=== PATIENT | male | born 2000 | race Caucasian/White ===

== ENCOUNTER 2024-09-16 18:09 | Inpatient (IN) | payer OTHER, SELFPAY ==
[2024-09-16 12:38] VITALS: BP 102/65
--- NOTE | 2024-09-16 13:39 | ED.GENMED ---
History of Present Illness
General
Chief Complaint: Abdominal Pain
Source: patient
Exam Limitations: none
Time Seen by Provider: 09/16/24 13:24
Nursing documentation reviewed up to this point in time: agreed with
History of Present Illness
History of Present Illness:
23 yo male, transitioning to female, taking HRT, presents with hx colitis and 2 days of n/v/dark liquid diarrheal stools. Last stool 1 hour ago, last emesis 3 hours ago. Pain across lower abdomen mainly but sometimes upper abdomen. Pain now 3/10 but
goes to 8/10 at times. Always there, waxes and wanes, dull with intermittent sharp pains.
Past History
Past History
ED Past Medical History: Other (colitis)
Social History
Tobacco: Other (occasional)
Alcohol: Occasional
Drug: None
Personal: Single
Living: alone
Employment: Not employed
Review of Systems
Review of Systems
Allergies reviewed?: Yes
All Other Systems: ROS reviewed and negative except as documented in HPI and ROS
Constitutional: Denies fever
Respiratory: Denies trouble breathing
Cardiac: Denies chest pain
ABD/GI: Reports abdominal pain, nausea, vomiting, diarrhea and black stools
: Denies dysuria, frequency or difficulty voiding
Musculoskeletal: Reports no symptoms
Skin: Reports no symptoms
Neurological: Reports no symptoms
Phy Exam
Physical Exam
Physical Exam:
GENERAL: No acute distress. A&Ox3.
CONSTITUTIONAL: Afebrile.
EYES: clear, conjunctivae normal
ENMT: moist mucus membranes, Pharynx nl
RESPIRATORY: Regular respirations, nonlabored, lungs clear.
CARDIOVASCULAR: Regular rate and rhythm, no murmurs, no rubs.
GI: Soft, abdomen generally tender, hypoactive BS.
MUSCULOSKELETAL: Moves with ease. Well perfused.
SKIN: Warm, dry, pink
PSYCH: Normal mood and affect. Well kept, interactive and appropriate
NEUROLOGIC: Awake, alert and oriented. No focal neurological deficits
Course
Orders/Labs/Results
Orders:
Orders
09/16/24 13:37
CT Abd/pel W Iv And Oral Contr Urgent
Comment:
Reason For Exam: n/v/ dark diarrheal stools, abd pain
0.9% Sodium Chloride 1000 ml [Nss] 1,000 ml IV BOLUS
Iohexol [Omnipaque] See Protocol PO NOW STA
Ondansetron Injectable [Zofran] 4 mg IV NOW STA
09/16/24 13:46
Ketorolac [Toradol] 15 mg IV NOW STA
09/16/24 13:55
Complete Blood Count/With Diff Urgent
Comprehensive Metabolic Panel Urgent
Urinalysis Reflex To Culture Urgent
Date Specimen was Collected: 09/16/24
Time Specimen was Collected: 12:43
Urine Microscopic Reflex Cult Urgent
09/16/24 Dinner
Clear Liquid
At Your Request: Full Participation
Does patient need a safe tray?: No
09/16/24 15:38
CDIFF [C difficile Antigen & Toxins] Urgent
ASHER Source: Feces/Stool
Specimen Description:
Date Specimen was Collected: 09/16/24
Time Specimen was Collected: 15:36
Stool Culture Urgent
ASHER Source: Feces/Stool
Specimen Description:
Date Specimen was Collected: 09/16/24
Time Specimen was Collected: 15:36
09/16/24 17:16
Consult Gastroenterology [GASTROINTESTINAL CONSULT] Urgent
Consulting Provider: Melani Valencia
Was physician already notified: Yes
Reason for consult: Colitis
09/16/24 17:20
MetroNIDAZOLE 500 MG/100 ML [Flagyl 500 mg] 100 ml IV NOW
09/16/24 17:40
Admit/Transfer Patient As Directed
Co-Sign Provider:
Level of Care: Inpatient admission
Assign to:: Medical/Surgical
Physician / Group: Ivette
Diagnosis: Acute gastroenteritis
Reason for Hospitalization: IVF, antibiotics, GI consult
Expected length of stay greater than two midnights?: Yes
ELOS- Estimated Length of Stay in days: 2
I certify the patient meets the requirements for IP care: Yes
09/16/24 17:41
PRN Pain Medication Management As Directed
May give lesser potent ordered pain med per pt: Yes
preference::
Protocol:: Medication orders for pain may be administered in a
manner that supports deferring to patient preference
when the pt is:
- Requesting an ordered lesser potent pain medication.
Least to most potent pain medications are defined
as: acetaminophen < NSAID < tramadol < opioids
(morphine, oxycodone, hydromorphone).
- Requesting a lesser dose of the same medication IF
ORDERED.
- Requesting a less intrusive route of administration
if both routes are prescribed by the provider (PO <
IV).
09/16/24 17:43
Code Status As Directed
Resuscitation Status: Full Code
09/16/24 20:16
0.9% Sodium Chloride 1000 ml [Nss] 1,000 ml IV 80 mls/hr
Acetaminophen [Tylenol] 650 mg PO Q6HPRN PRN
Enoxaparin Sodium [Lovenox] 40 mg SC QPM
Ondansetron Injectable [Zofran] 4 mg IV Q6HPRN PRN
09/16/24 20:16
Activity As Directed
Activity Level: Ambulate
DX Deep Vein Thrombosis Video Routine
09/17/24 00:00
MetroNIDAZOLE 500 MG/100 ML [Flagyl 500 mg] 100 ml IV Q8H
09/17/24 06:00
CBC/With Diff [Complete Blood Count/With Diff] IN AM
09/17/24 08:00
Ciprofloxacin 400 mg/[id number] [Cipro 400 mg] 200 ml IV Q12H
Estradiol [Estrace] 4 mg PO DAILY
Spironolactone [Aldactone] 50 mg PO DAILY
progesterone micronized 100 mg PO DAILY
Abnormal Lab Results
09/16/24
13:55
WBC 13.5 H 10^3/uL
(4.8-10.8)
Absolute Neuts (auto) 11.7 H 10^3/uL
(1.4-6.5)
Absolute Lymphs (auto) 0.5 L 10^3/uL
(1.2-3.4)
Absolute Monos (auto) 1.3 H 10^3/uL
(0.1-0.6)
Neutrophils % 86.9 H %
(42.2-75.2)
Lymphocytes % 3.3 L %
(20.5-51.1)
Monocytes % 9.4 H %
(1.7-9.3)
BUN 19 H mg/dl
(7-17)
Glucose 119 H mg/dl
(70-99)
Alkaline Phosphatase 34 L U/L
(38-126)
Urine Ketones 3+ A
(Negative)
Urine Bilirubin 1+ A
(Negative)
Leukocyte Esterase Rfl Trace A
(Negative)
Urine Bacteria (Reflex) Few A
(Negative)
09/16/24 13:55
09/16/24 13:55
Vital Signs
Initial and Last Documented VS:
Initial Vital Signs
Temp Pulse Resp BP Pulse Ox
98.0 F 116 16 102/65 98
09/16/24 12:38 09/16/24 12:38 09/16/24 12:38 09/16/24 12:38 09/16/24 12:38
Last Documented Vital Signs
Temp Pulse Resp BP Pulse Ox
98.0 F 105 20 110/72 97
09/16/24 12:38 09/16/24 20:14 09/16/24 20:14 09/16/24 20:14 09/16/24 20:14
MDM/Problems Addressed
Differential Diagnosis Includes:
Gastroenteritis, colitis, diverticulitis
MDM/Problems Addressed:
23 yo male, transitioning to female, taking HRT, presents with hx colitis and 2 days of n/v/dark liquid diarrheal stools. Last stool 1 hour ago, last emesis 3 hours ago. Pain across lower abdomen mainly but sometimes upper abdomen. Pain now 3/10 but
goes to 8/10 at times. Always there, waxes and wanes, dull with intermittent sharp pains.
Afebrile,NAD
3:30 PM:
CBC: WBC 13.5 with elevated neutrophils CMP:
No clinically significant abnormality
UA: Negative for infection, +3 ketones +1 bilirubin
3:30 p.m.
Pt remains comfortable
5:[address] abd/pelvis Radiology report read: IMPRESSION: The appendix appears normal.
Moderate wall thickening involving small bowel loops of the mid to distal small bowel, fairly contiguous involvement. Thickening appears greatest involving the distal ileum. Findings are compatible with enteritis. Most likely this represents
infectious enteritis, with inflammatory bowel disease/Crohn's disease a differential consideration.
No evidence for bowel obstruction. No evidence of free intraperitoneal air. No evidence for abscess. No significant free pelvic fluid.
Results discussed with pt and family offered admit vs going home with treatment, pt wants to stay
Hospitalist notified of admission
GI Dr. Valencia consulted. GI consult in
Pt remains comfortable. Stable.
*Critical Care Note
Total Time (30-74mins, 75-104mins- exclusive of procedures): Not Applicable
ED Attending Note
-
Portions of this chart may have been created with voice recognition software.� Occasional wrong word or��sound alike� substitutions may have occurred due to the inherent limitations of voice recognition software.
Discharge Plan
Departure
Patient Disposition: Admit
Date of Disposition: 09/16/24
Time of Disposition: 17:19
Admit to: Med/Surg
Presentation/result/management discussed w/ accepting MD/DO: Hospitalist
Condition: Fair
Discharge Problem:
Acute colitis
Interventions
Interventions:
*Risk Screen - Suicide Last Done: 09/16/24 12:38
*Neglect/Abuse Screening Last Done: 09/16/24 12:38
ED- Fall Risk Assessment Last Done: 09/16/24 12:50
FO-Ermboy-Rpdeynhzhq Assessment Last Done: 09/16/24 12:50
[2024-09-16] MEDS: NSS 1000 IV ×2 (13:55→21:54)
[2024-09-16] MEDS: OMNIPAQUE 50 ML PO (14:01)
[2024-09-16] MEDS: ZOFRAN 4 MG IV (14:01)
[2024-09-16] MEDS: TORADOL 15 MG IV (14:02)
[2024-09-16 14:14] VITALS: BP 104/68
[2024-09-16 14:18] LABS: % Basophils 0.1 % (0-2); % Immature Granulocytes 0.3 % (0-0.5); % Lymphocytes 3.3 % (20.5-51.1); % Monocytes 9.4 % (1.7-9.3); % Neutrophils 86.9 % (42.2-75.2); Absolute Lymphocytes 0.5 10^3/uL (1.2-3.4); Absolute Monocytes 1.3 10^3/uL (0.1-0.6); Absolute Neutrophils 11.7 10^3/uL (1.4-6.5); Hematocrit 39.2 % (37.0-47.0); Hemoglobin 14.4 g/dL (12.0-16.0); Mean Corp Hgb Conc. 36.7 g/dL (33.0-37.0); Mean Corpuscular Hgb 30.3 pg (27.0-31.0); Mean Corpuscular Volume 82.4 fL (81.0-99.0); Mean Platelet Volume 10.1 fL (7.4-10.4); Nucleated Red Blood Cells % 0 %; Platelet Count 196 10^3/uL (130-400); Red Blood Cell Count 4.76 10^6/uL (4.20-5.40); White Blood Cell Count 13.5 10^3/uL (4.8-10.8)
[2024-09-16 14:22] LABS: Urine Albumin Trace (Neg - Trace); Urine Bilirubin 1+ (Negative); Urine Character Clear (Clear); Urine Color Yellow; Urine Glucose Negative (Negative); Urine Ketone 3+ (Negative); Urine Leukocyte Trace (Negative); Urine Nitrite Negative (Negative); Urine Occult Blood Negative (Negative); Urine Urobilinogen Negative (Neg - 1+)
[2024-09-16 14:31] LABS: Urine Mucus Moderate
[2024-09-16 14:32] LABS: Urine Red Blood Cell 0-2 /HPF (0-2)
[2024-09-16 14:33] LABS: Urine Bacteria Few (Negative)
[2024-09-16 14:35] LABS: ALT (SGPT) 15 U/L (0-35); AST (SGOT) 20 U/L (14-36); Alkaline Phosphatase 34 U/L (38-126); Blood Urea Nitrogen 19 mg/dl (7-17); Carbon Dioxide 22 mmol/L (22-30); Chloride 99 mmol/L (98-107); Glucose 119 mg/dl (70-99); Potassium 3.9 mmol/L (3.5-5.1); Sodium 137 mmol/L (135-145); Total Bilirubin 0.7 mg/dl (0.2-1.3); Total Protein 7.7 g/dl (6.3-8.2); eGFR > 60.00
[2024-09-16 15:50] VITALS: BP 105/75
[2024-09-16] MEDS: FLAGYL 500 MG 100 IV (17:44)
--- NOTE | 2024-09-16 17:50 | HPS.HSE ---
Family Physician
-
Family Physician: * NONE
Chief Complaint
-
Nausea, vomiting, diarrhea
History of Present Illness
23-year-old transgender female here complaining of nausea vomiting and diarrhea that started Monday night. Associated abdominal pain that is sharp in nature.
Went to [facility] Monday during the day and had fried chicken. Started developing symptoms Monday night.
Denies any other sick contacts. No one else is ill at home. States stool has been dark brown, no visible blood or mucus.
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 Last colonoscopy reportedly 5-7 years ago.
Patient goes by the name of Robin.
Medical History
Past Medical History
Past Medical History: Reports Other
Additional Past Medical History:
Microscopic colitis
Past Surgical History: Reports Other
Additional Past Surgical History:
Inguinal hernia repair
Social History
Tobacco: Non-smoker
Alcohol: Occasional
Drug: None
Personal: Single
Living: With Family
Family History
Family History: Other (Mother with celiac disease)
Allergies / Home Medications
Allergies reflects when Allergies were last updated in [employer].
Home Medications with original date entered in [employer]
Allergy/Medication List:
Allergies
Allergy/AdvReac Type Severity Reaction Status Date / Time
Milk Containing Products Allergy Anaphylaxis Verified 09/16/24 12:42
(Dairy)
Home Medications
calcium carbonate 1,000 mg PO DAILYPRN PRN stomach issues 09/16/24
estradiol 2 mg tablet 4 mg PO DAILY 09/16/24
progesterone micronized 100 mg capsule 100 mg PO DAILY 09/16/24
spironolactone 50 mg tablet 50 mg PO DAILY 09/16/24
Review of Systems
-
History Source: Patient
A 12 point ROS was completed and negative except as noted: Yes
Abdomen/GI: Reports Abdominal Pain, Nausea, Vomiting and Diarrhea
Physical Exam
Vital Signs
Vital Signs
Temp Pulse Resp BP Pulse Ox
98.0 F 111 20 105/75 97
09/16/24 12:38 09/16/24 15:50 09/16/24 15:50 09/16/24 15:50 09/16/24 15:50
Physical Exam
General: Well Developed, Well Nourished, No Apparent Distress and Comfortable
HEENT: NormoCephalic, Anicteric and Moist mucous membranes
Respiratory: Clear
Cardiac: S1/S2 and Regular Rhythm
GI: Soft, Non Distended and Tender (Mild diffuse tenderness without guarding or rebound)
Genito-urinary: Deferred by me
Musculoskeletal: No Clubbing, No Cyanosis and No Edema
Skin: Warm and Dry
Neuro: AO x 3
Hematologic/Lymphatic: No Lymphadenopathy
Laboratory Results
-
09/16/24 13:55
09/16/24 13:55
Laboratory Results
Total Bilirubin 0.7 mg/dl (0.2-1.3) 09/16/24 13:55
AST 20 U/L (14-36) 09/16/24 13:55
ALT 15 U/L (0-35) 09/16/24 13:55
Alkaline Phosphatase 34 U/L (38-126) L 09/16/24 13:55
Impression/Plan
-
Acute gastroenteritis -likely infectious in etiology. Doubt inflammatory bowel disease. Admit to MedSurg. Continue IV hydration. Continue antiemetics. Continue antibiotics pending culture results.
GI service consulted by the emergency room.
CT scan shows enteritis without bowel obstruction, free air, or abscess.
History of microscopic colitis -has not had a flare in years.
Full code
Updated mother at the bedside.
[2024-09-16] MEDS: CIPRO 400 MG 200 IV (19:55)
[2024-09-16 20:14] VITALS: BP 110/72
[2024-09-16] MEDS: LOVENOX SC (20:52)
[2024-09-16] MEDS: TYLENOL 650 MG PO (22:06)
[2024-09-17] VITALS (7 sets, daily range): BP systolic 96–116; BP diastolic 57–65; BMI 20.3
[2024-09-17] MEDS: FLAGYL 500 MG 100 IV ×3 (02:00→16:18)
[2024-09-17 06:18] LABS: % Basophils 0.9 % (0-2); % Eosinophils 2.3 % (0-6); % Immature Granulocytes 0.2 % (0-0.5); % Lymphocytes 23.4 % (20.5-51.1); % Monocytes 16.8 % (1.7-9.3); % Neutrophils 56.4 % (42.2-75.2); Absolute Eosinophils 0.1 10^3/uL (0-0.7); Absolute Monocytes 0.7 10^3/uL (0.1-0.6); Absolute Neutrophils 2.5 10^3/uL (1.4-6.5); Hematocrit 34.9 % (39.0-52.0); Hemoglobin 12.5 g/dL (13.0-18.0); Mean Corp Hgb Conc. 35.8 g/dL (33.0-37.0); Mean Corpuscular Hgb 31.2 pg (27.0-31.0); Mean Platelet Volume 10.4 fL (7.4-10.4); Nucleated Red Blood Cells % 0 % (-); Platelet Count 142 10^3/uL (130-400); Red Blood Cell Count 4.01 10^6/uL (4.70-6.10); Red Cell Dist. Width 11.9 % (11.5-14.5); White Blood Cell Count 4.4 10^3/uL (4.8-10.8)
--- NOTE | 2024-09-17 09:15 | CON.GI ---
Addendum entered and electronically signed by Melani Valencia MD 09/17/24 19:31:
I saw and examined the patient.
The diploma medical assistant note was reviewed and I agree with the note.
Abdominal pain/diarrhea/emesis-CT imaging showing possible enteritis. Etiology infectious versus inflammatory
Prior history of microscopic colitis-7 years back. Treated with steroids at that time. No records available
plan
Patient currently tolerating liquid diet. Continues to have loose stools. No vomiting
Will advance to lactose-free low residual diet
Continue monitor stool output
Stool C. difficile was negative. Stool culture pending
Check celiac panel
Patient requires outpatient GI follow-up on discharge
Original Note:
Consultation
-
Date/Time Consultation Requested: 09/16/24 17:16 pm
Date/Time Consultation Performed: 09/17/24 08.45 am
Requesting Provider: Lakshmi Crocker NP
Performing Provider: Janny Aranda MD
Reason for Consultation: Enteritis?
Medical History
Chief Complaint / HPI
Chief Complaint: Abdominal pain along with emesis and diarrhea
History of Present Illness:
The patient is a 23 year old trans-gender female who does not have a significant PMH. The patient went to [facility] Monday during the day and had fried chicken.Following, She started to have abdominal pain on Monday and started to have
diarrhea and emesis, reports her her stool and emesis color was dark colored. She reported having more than 10 times episodes of diarrhea and more than 6 times episodes of emesis. Denies any chronic disease and denies NSAI use. She has been on
estrogen, progesterone and spironolactone. Reports she had a diarrhea episode for twice in the past about 6-7 years ago and she had a colonoscopy at that time. A biopsy was taken at that time and she was diagnosed with microscopic colitis. At the
same time she was also diagnosed with right inguinal hernia. The patient reports on/off diarrhea for years likely once in a month and is not bloody. Reports having food intolerance for diary products. The patient has a significant family history of
inflammatory bowel disease. Her mother has celiac disease and her cousin has Crohn disease.
Past Medical History
Past Medical History: Other ( microscopic colitis )
Past Surgical History: Other (Inguinal hernia repair)
Social History
Tobacco: Non-Smoker
Alcohol: Occasional
Drug: None
Personal: Single
Living: With Family
Family History
Family History: Other (Mother celiac disease and graves, Cousine has Crohn disease , Grandparents has colon ca at the age of ~50 )
Allergies / Home Medications
Allergy/AdvReac Type Severity Reaction Status Date / Time
Milk Containing Products Allergy Anaphylaxis Verified 09/16/24 12:42
(Dairy)
�Medication �Instructions �Recorded
calcium carbonate 1,000 mg PO DAILYPRN PRN stomach 09/16/24
issues
estradiol 2 mg tablet 4 mg PO DAILY 09/16/24
progesterone micronized 100 mg 100 mg PO DAILY 09/16/24
capsule
spironolactone 50 mg tablet 50 mg PO DAILY 09/16/24
Review of Systems
-
EENT: Reports No Symptoms
Respiratory: Reports No Symptoms
Cardiac: Reports No Symptoms
Abdomen/GI: Reports Diarrhea and Pain
: Reports No Symptoms
Musculoskeletal: Reports No Symptoms
Skin: Reports No Symptoms
Neurological: Reports No Symptoms
Vital Signs
Temp Pulse Resp BP Pulse Ox
97.9 F 67 14 109/59 96
09/17/24 07:30 09/17/24 07:30 09/17/24 07:30 09/17/24 07:30 09/17/24 07:30
Physical Exam
Exam
General: Well Developed, Well Nourished and No Apparent Distress
HEENT: Normocephalic and Anicteric
Respiratory: Clear
Cardiac: S1/S2 and Regular Rhythm
GI: Soft, Tender and Other (moderate pain to palpation on the mid and lower abdominal area )
Musculoskeletal: No Clubbing, No Cyanosis and No Edema
Skin: Warm
Neuro: Awake, Alert, Oriented and AO x 3
Results
WBC 4.4 10^3/uL (4.8-10.8) L 09/17/24 05:31
Hgb 12.5 g/dL (13.0-18.0) L 09/17/24 05:31
Hct 34.9 % (39.0-52.0) L 09/17/24 05:31
MCV 87.0 fL (80.0-94.0) 09/17/24 05:31
Plt Count 142 10^3/uL (130-400) D 09/17/24 05:31
Absolute Neuts (auto) 2.5 10^3/uL (1.4-6.5) 09/17/24 05:31
Sodium 137 mmol/L (135-145) 09/16/24 13:55
Potassium 3.9 mmol/L (3.5-5.1) 09/16/24 13:55
Chloride 99 mmol/L (98-107) 09/16/24 13:55
Carbon Dioxide 22 mmol/L (22-30) 09/16/24 13:55
BUN 19 mg/dl (7-17) H 09/16/24 13:55
Creatinine 1.0 mg/dL (0.6-1.0) 09/16/24 13:55
Calcium 10.0 mg/dl (8.4-10.2) 09/16/24 13:55
Total Bilirubin 0.7 mg/dl (0.2-1.3) 09/16/24 13:55
AST 20 U/L (14-36) 09/16/24 13:55
ALT 15 U/L (0-35) 09/16/24 13:55
Alkaline Phosphatase 34 U/L (38-126) L 09/16/24 13:55
Diagnostic Image Results:
Prior GI Procedures:
EGD:
Colonoscopy:
Assessment / Plan
-
Impression: The patient is a 23 year old trans-gender female who presented to ER complaining from black/tarry colored diarrhea and black colored emesis. The patient was diagnosed with microscopic colitis in the past due having similar diarrhea
episodes but not severe like the recent one she had on this admission. Abd CT shows:' Thickening appears greatest involving the distal ileum. Findings are compatible with enteritis. Most likely this represents infectious enteritis, with
inflammatory bowel disease/Crohn's disease a differential consideration.' The patient had a colonoscopy about 7 years ago and the biopsy showed microscopic colitis. Patient has a significant family history of inflammatory bowel disease
Assessment/Plan
#Diarrhea due infection vs inflammatory
- Continue IV hydration and clear liquid diet
-Continue antibiotics /pending stool culture results-Negative for C diff
-Follow Hgb/ Dropped from 14.4 to 12.5
-History of microscopic colitis in the past
-A strong family hx of inflammatory bowel disease
-CT scan shows infectious enteritis, with a possible inflammatory bowel disease ( Crohn?)
-Colonoscopy can be considered
-Celiac comprehensive panel was ordered
#Emesis
-Denies hx of PUD or GERD
-Had hematemesis at lest 6 times and it is the first time she had hematemesis
-Still had mid-abdominal pain
-Endoscopy can be considered
-
-
Thank you for consultation and allowing me to participate in the patient's care. Please call the log pond worker GI physician during the after hours with any questions or concerns.
[2024-09-17] MEDS: ALDACTONE 50 MG PO (09:27)
[2024-09-17] MEDS: ESTRACE 4 MG PO (09:29)
[2024-09-17] MEDS: CIPRO 400 MG 200 IV ×2 (09:31→21:14)
--- NOTE | 2024-09-17 11:34 | W.PN.HOSP.TC ---
Today's Communication/Plan
-
Continue current care
Assessment / Plan
Assessment / Plan
Gen-AAOx3, NAD
HEENT-NC, AT, anicteric, clear oral mm
Neck-supple
CV-reg, no M, +S1/S2
Lungs-clear B/L
Abd-soft, NT, ND
Ext-no edema
Musculoskeletal-no cyanosis, clubbing
Skin-warm and dry
Neuro-grossly non-focal
Psych-calm, cooperative
Acute gastroenteritis -likely infectious in etiology. Doubt inflammatory bowel disease. Clinically improving. Leukocytosis resolved, mild leukopenia noted. Afebrile. Continue empiric antibiotics for now. Stool C. difficile toxin negative.
Stool culture pending. GI service sent celiac panel. Awaiting attending input.
Tolerating clears. Advance diet if okay with GI service.
CT scan shows enteritis without bowel obstruction, free air, or abscess.
History of microscopic colitis -has not had a flare in years.
Full code
Updated mother at the bedside.
Anticipated Discharge: Within 24 hours
Subjective/Interval History
-
Date of Service: September 17, 2024
Patient seen and examined. Overall feeling better, nausea resolved. Diarrhea is slowing down. Holding down clear liquids.
Objective Data
-
Labs:
Laboratory Results
09/17/24
05:31
WBC 4.4 L
Hgb 12.5 L
Hct 34.9 L
Plt Count 142 D
Vital Signs:
Vital Signs
Temp Pulse Resp BP Pulse Ox
97.9 F 67 14 109/59 96
09/17/24 07:30 09/17/24 07:30 09/17/24 07:30 09/17/24 07:30 09/17/24 07:30
I&O
09/16/24 09/17/24 09/18/24
06:59 06:59 06:59
Intake Total 760 / 760
Balance 760 / 760
Review of Systems
-
History Source: Patient
All other systems: Reviewed and negative
[2024-09-17] MEDS: LOVENOX 40 MG SC (18:30)
--- NOTE | 2024-09-17 18:35 | PTCARENOTE ---
received pt from ED to 3W room 327, oriented to room, VS taken, assessment complete, diet completed,, call torrez within reach, bed in lowest position, follow plan of care
[2024-09-17] MEDS: TORADOL 15 MG IV (21:56)
[2024-09-17] MEDS: FLUSH (NSS) 2 FLUSH IV (21:57)
[2024-09-18] MEDS: FLUSH (NSS) 2 FLUSH IV (01:58)
[2024-09-18] MEDS: FLAGYL 500 MG 100 IV ×3 (01:58→15:01)
[2024-09-18 06:08] LABS: % Eosinophils 4.2 % (0-6); % Immature Granulocytes 0.2 % (0-0.5); % Lymphocytes 39.9 % (20.5-51.1); % Monocytes 16.7 % (1.7-9.3); Absolute Eosinophils 0.2 10^3/uL (0-0.7); Absolute Lymphocytes 1.6 10^3/uL (1.2-3.4); Absolute Monocytes 0.7 10^3/uL (0.1-0.6); Absolute Neutrophils 1.5 10^3/uL (1.4-6.5); Hematocrit 35.2 % (39.0-52.0); Hemoglobin 12.6 g/dL (13.0-18.0); Mean Corp Hgb Conc. 35.8 g/dL (33.0-37.0); Mean Corpuscular Hgb 31.3 pg (27.0-31.0); Mean Corpuscular Volume 87.6 fL (80.0-94.0); Mean Platelet Volume 10.2 fL (7.4-10.4); Nucleated Red Blood Cells % 0 % (-); Platelet Count 162 10^3/uL (130-400); Red Blood Cell Count 4.02 10^6/uL (4.70-6.10); White Blood Cell Count 4.1 10^3/uL (4.8-10.8)
[2024-09-18 07:00] VITALS: BP 100/65
[2024-09-18] MEDS: ALDACTONE PO (07:52)
[2024-09-18] MEDS: CIPRO 400 MG 200 IV (09:02)
[2024-09-18] MEDS: ESTRACE 4 MG PO (09:09)
--- NOTE | 2024-09-18 10:48 | CM ---
CM met with pt bedside
Transgender female with she/her pronouns, goes by Erica
Pt resides with her mother in a 3rd floor apartment, no elevator access
She just finished college and looking for employment
Insured through her father's plan
Pt is independent with her ADLs
Denies use of DMEs
Denies financial insecurities
PCP- does not have one, goes to urgent care
Rx- [facility]
Admissions updated with preferred name and pronouns
Discharge Disposition- home, no needs anticipated, sister/Jessy will transport home
[2024-09-18 11:28] LABS: tTG IgA Antibody 2.4 EU/ml (0-19); tTG IgG Antibody 6.7 EU/ml (0-19)
--- NOTE | 2024-09-18 12:24 | W.PN.HOSP.TC ---
Today's Communication/Plan
-
discharge
Assessment / Plan
Assessment / Plan
Gen-AAOx3, NAD
HEENT-NC, AT, anicteric, clear oral mm
Neck-supple
CV-reg, no M, +S1/S2
Lungs-clear B/L
Abd-soft, NT, ND
Ext-no edema
Musculoskeletal-no cyanosis, clubbing
Skin-warm and dry
Neuro-grossly non-focal
Psych-calm, cooperative
Acute gastroenteritis -likely infectious in etiology. Doubt inflammatory bowel disease. Clinically improving. Leukocytosis resolved, mild leukopenia noted. Afebrile.
Tolerating low res diet.
Stool culture negative so far.
She is requesting analgesics on discharge for abdominal pain, can try Bentyl. Discussed with GI service.
History of microscopic colitis -has not had a flare in years.
Full code
Dispo - anticipate discharge this afternoon. Discussed with Dr. Valencia, plan for outpatient GI follow up.
32 min spent in discharge process.
Anticipated Discharge: Today
Subjective/Interval History
-
Date of Service: September 18, 2024
Patient seen/examined. Overall feeling better, less abdominal pain, nausea resolved. Tolerating low res diet. One episode loose stools this am.
Objective Data
-
Labs:
Laboratory Results
09/18/24
05:53
WBC 4.1 L
Hgb 12.6 L
Hct 35.2 L
Plt Count 162
Vital Signs:
Vital Signs
Temp Pulse Resp BP Pulse Ox
98.4 F 85 18 100/65 99
09/18/24 07:00 09/18/24 07:52 09/18/24 07:00 09/18/24 07:52 09/18/24 07:00
I&O
09/17/24 09/18/2424
06:59 06:59 06:59
Intake Total 760 / 760 540 / 540
Balance 760 / 760 540 / 540
Review of Systems
-
History Source: Patient
All other systems: Reviewed and negative
--- NOTE | 2024-09-18 12:42 | W.DS.TRANS ---
DC Summary - Clip Riveter
-
Discharge Instructions:
Discharge Diagnosis/Procedures Acute gastroenteritis
Diet Low Residue
Activity As tolerated
Driving Restrictions As prior to admission
Bathing Restrictions None
Instructions:
Stand-Alone Forms:
Changes to Home Medications: No
Discharge Medications:
DC Medications w/original date entered in [employer]
calcium carbonate 1,000 mg PO DAILYPRN PRN stomach issues 09/16/24
estradiol 2 mg tablet 4 mg PO DAILY Hormonal Agent 09/16/24
progesterone micronized 100 mg capsule 100 mg PO DAILY Hormonal Agent 09/16/24
spironolactone 50 mg tablet 50 mg PO DAILY Blood Pressure 09/16/24
ciprofloxacin HCl 500 mg tablet 500 mg PO BID #6 tabs 09/18/24
dicyclomine 10 mg capsule 10 mg PO QID PRN abdominal pain #20 caps 09/18/24
metronidazole 500 mg tablet 500 mg PO TID #9 tabs 09/18/24
Home Medication Changes
Pending Results: No
[2024-09-18 15:00] VITALS: BP 94/58
[2024-09-18 23:38] LABS: IgA 146 mg/dl (70-400)
[2024-09-19 15:04] LABS: Endomysial IgA Antibody Titer <1:10 (<1:10)
== END 2024-09-18 16:29 | disposition home or self-care (01) | DRG 392 ==
LOC: 3 WEST ACU 18:09
PROVIDERS: Student in an Organized Health Care Education/Training Program; ADMITTING PHYSICIAN Hospitalist; CONSULT PHYSICIAN Internal Medicine Gastroenterology; EMERGENCY PHYSICIAN Emergency Medicine
DX: A09 Infectious gastroenteritis and colitis, unspecified (principal); K90.49 Malabsorption due to intolerance, not elsewhere classified; K40.90 Unilateral inguinal hernia, without obstruction or gangrene, not specified as recurrent; Z87.19 Personal history of other diseases of the digestive system; Z80.0 Family history of malignant neoplasm of digestive organs; Z83.79 Family history of other diseases of the digestive system; Z79.899 Other long term (current) drug therapy
CPT/HCPCS: 74177; 80053; 81003; 81015; 82784; 83516; 85025; 86231; 87045; 87046; 87324; 87427; 87449; 96361; 96374; 96375; 99285; Q9967